=== PATIENT | male | born 1955 | race Caucasian/White ===

== ENCOUNTER 2018-06-30 20:38 | Emergency (ER) | payer BC ==
--- NOTE | 2018-06-30 20:59 | Emergency Department Record ---
History of Present Illness - General Stated Complaint: LT HAND BEE STINGS/SWELLING Time Seen by Provider: 06/30/18 20:53 Source: Patient Mode of Arrival: Ambulatory Limitations: No limitations - History of Present Illness Initial Comments: 62 yo male presents to ED for evaluation following a bee sting to the left index finger and dorsum of the hand. Patient reports that the sting occurred approximately 2.5 hours ago, reports taking Benadryl for his symptoms approximately 45 minutes ago. Patient denies throat swelling or difficulty breathing symptoms on examination, and denies health problems at his baseline. MD Complaint: Injury to:: Left, Hand, Finger Onset/Timin -: Hour(s) Other Extremity Injury: Hand: Left Other Injuries: None Place: Home Improves With: None Worsens With: None Context: Other (Bee sting) Associated Symptoms: Denies other symptoms - Related Data Home Medications Medication Instructions Recorded Confirmed Last Taken No Home Med [NO HOME MEDS] 06/30/18 06/30/18 Unknown Allergies Allergy/AdvReac Type Severity Reaction Status Date / Time No Known Drug Allergies Allergy Verified 06/30/18 21:04 Review of Systems Constitutional: Denies: Chills, Fever, Malaise, Night sweats Eyes: Denies: Eye discharge, Eye pain ENT: Denies: Congestion, Ear pain, Epistaxis Respiratory: Denies: Cough, Dyspnea Cardiovascular: Denies: Chest pain, Dyspnea on exertion Endocrine: Denies: Fatigue, Heat or cold intolerance Gastrointestinal: Denies: Abdominal pain, Nausea, Vomiting Genitourinary: Denies: Incontinence, Retention Musculoskeletal: Denies: Arthralgia, Back pain, Gout, Joint swelling Skin: Reports: Other (Redness, swelling to the left index finger/dorsum of the hand). Denies: Bruising, Change in color Neurological: Denies: Abnormal gait, Confusion, Headache, Seizure Psychiatric: Denies: Anxiety Hematological/Lymphatic: Denies: Anemia, Blood Clots Physical Exam - General General Appearance: Alert, Oriented x3, Cooperative, Mild distress Limitations: No limitations - Head Head exam: Atraumatic, Normocephalic, Normal inspection Head exam detail: negative: Abrasion, Contusion, Manzano's sign, General tenderness, Hematoma, Laceration - Eye Eye exam: Normal appearance. negative: Conjunctival injection, Periorbital swelling, Periorbital tenderness, Scleral icterus - ENT Ear exam: negative: Auricular hematoma, Auricular trauma Nasal Exam: negative: Active bleeding, Discharge, Dried blood, Foreign body Mouth exam: negative: Drooling, Laceration, Muffled voice, Tongue elevation Throat exam: Other (No uvular swelling is present on examination.). negative: R peritonsillar mass, L peritonsillar mass - Neck Neck exam: Normal inspection. negative: Meningismus, Tenderness - Respiratory Respiratory exam: Normal lung sounds bilaterally. negative: Rales, Respiratory distress, Rhonchi, Stridor - Cardiovascular Cardiovascular Exam: Regular rate, Normal rhythm, Normal heart sounds - GI/Abdominal GI/Abdominal exam: Soft. negative: Rebound, Rigid, Tenderness - Rectal Rectal exam: Deferred - exam: Deferred - Extremities Extremities exam: Tenderness (Erythema and mild STS to the dorsum of the left hand and index finger with wedding finger in place.). negative: Calf tenderness , Pedal edema - Back Back exam: Denies: CVA tenderness (R), CVA tenderness (L) - Neurological Neurological exam: Alert, Normal gait, Oriented X3 - Psychiatric Psychiatric exam: Normal affect, Normal mood - Skin Skin exam: Normal color. negative: Abrasion Type of lesion: negative: abrasion Course - Reevaluation(s) Reevaluation #1: 06/30/18 20:58 Patient reports that he was unable to remove his wedding ring prior to the bee sting. Will place the hand in ice bath and attempt removal with surgi-lube in 20-30 minutes. Reevaluation #2: 06/30/18 22:54 Attempted numerous times to remove the patient's ring without success (limited by patient's pain symptoms). Patient does not want the ring to be cut off following our attempts. There is hollow space between the ring and finger, and neurovascular compromise does not appear to be a concern based on my examination as this space between the ring and finger is present. Patient was instructed to continue ice overnight for his swelling which should continue to improve over the next 8-12 hours. Patient was instructed to return to ED to have the ring removed by cutting if his finger pain or swelling worsens overnight. Patient was also instructed to continue Benadryl as needed for itching symptoms. Patient appears stable for discharge at this time. Disposition Disposition: Discharge Clinical Impression: Tight ring on finger Bee sting Qualifiers: Encounter type: initial encounter Injury intent: undetermined intent Qualified Code(s): T63.444A - Toxic effect of venom of bees, undetermined, initial encounter Disposition: Home, Self-Care Condition: (2) Stable Instructions: Insect Bite or Sting (ED) Additional Instructions: Return to ED if your symptoms worsen or if you have any concerns. Benadryl as directed. Follow-up with your family doctor in 3-5 days as directed. Time of Disposition: 22:58 Quality - Quality Measures Quality Measures: N/A - Blood Pressure Screening Does Patient Have Any of the Following: No Blood Pressure Classification: Pre-Hypertensive BP Reading Systolic Measurement: 140 Diastolic Measurement: 88 Screening for High Blood Pressure: < Pre-Hypertensive BP, F/U Documented > [ [id number]] Pre-Hypertensive Follow-up Interventions: Referral to alternative/primary care provider.
== END 2018-06-30 23:09 | disposition home or self-care (01) ==
LOC: ER 20:38
DX: T63.444A Toxic effect of venom of bees, undetermined, initial encounter (principal); R22.31 Localized swelling, mass and lump, right upper limb; Y92.009 Unspecified place in unspecified non-institutional (private) residence as the place of occurrence of the external cause
CPT/HCPCS: 99282